=== PATIENT | female | born 1965 | race Caucasian/White ===

== ENCOUNTER 2016-07-05 14:52 | Inpatient (IN) | payer OTHER ==
[~2016-07-05] VITALS: Ht 170.2 cm; Wt 121.2 kg
[2016-07-05 16:02] LABS: Basophils # (auto) 0.1 uL; Basophils % (auto) 0.5 % (0.0-2.0); Eosinophils # (auto) 0.1 uL; Eosinophils % (auto) 0.8 % (0.0-7.0); Hematocrit 45.8 % (36.0-46.0); Hemoglobin 15.2 g/dL (12.2-16.2); Lymphocytes % (auto) 16.6 % (10.0-50.0); Mean Corpuscular Hemoglobin 29.3 pg (28.0-32.0); Mean Corpuscular Hgb Conc. 33.2 g/dL (32.0-36.0); Mean Corpuscular Volume 88.2 fL (80.0-100.0); Mean Platelet Volume 10.8 fL (7.4-10.4); Monocytes # (auto) 0.7 uL; Monocytes % (auto) 5.7 % (0.0-12.0); Neutrophils # (auto) 9.1 uL; Neutrophils % (auto) 76.4 % (37.0-80.0); Platelet Count (auto) 247 10^3/uL (140-450); Red Cell Distribution Width 13.9 % (11.6-16.0); White Blood Cell 11.9 10^3/uL (4.4-10.8)
[2016-07-05 16:03] LABS: Urine Bilirubin Negative (Negative); Urine Blood TRACE /uL (Negative); Urine Color Yellow (Yellow); Urine Glucose Normal (Normal); Urine Ketone Negative (Negative); Urine Nitrite Negative (Negative); Urine RBC 6 /hpf (0 - 4); Urine Squamous Epithelial Cell FEW /hpf (<5); Urine Urobilinogen Normal (Negative)
[2016-07-05 16:27] LABS: Albumin 3.7 g/dL (3.4-5.0); BUN/Creatinine Ratio 17.3; Potassium 4.1 mmol/L (3.5-5.1)
[2016-07-05 16:30] LABS: Bilirubin, Total 0.4 mg/dL (0.2-1.0); Total Protein 7.2 g/dL (6.4-8.2)
[2016-07-06] MEDS ORDERED: ONDANSETRON HCL 4 MG/2 ML VIAL IV PRN (05:30)
[2016-07-06] MEDS ORDERED: HYDROcodone-ACET 5/325MG TAB PO PRN (05:30)
[2016-07-06] MEDS: SODIUM CHLORIDE 0.9% 1,000 ML IV SCH ×2 (08:14→22:42)
[2016-07-06 08:47] VITALS: BP 104/75
[2016-07-06] MEDS ORDERED: cefTRIAXone 1GM/50ML D5W 50 ML IV SCH (09:00)
[2016-07-06 10:00] VITALS: BP 104/75
[2016-07-06] MEDS ORDERED: ENOXAPARIN SOD 30 MG/0.3 ML SYRINGE SC SCH (10:00)
[2016-07-06 12:00] VITALS: BP 127/71
[2016-07-06 12:21] LABS: Basophils # (auto) 0.1 uL; Basophils % (auto) 0.6 % (0.0-2.0); Eosinophils # (auto) 0.1 uL; Eosinophils % (auto) 0.9 % (0.0-7.0); Hematocrit 44.3 % (36.0-46.0); Hemoglobin 14.9 g/dL (12.2-16.2); Lymphocytes # (auto) 1.7 uL; Lymphocytes % (auto) 19.5 % (10.0-50.0); Mean Corpuscular Hemoglobin 29.3 pg (28.0-32.0); Mean Corpuscular Hgb Conc. 33.7 g/dL (32.0-36.0); Mean Corpuscular Volume 87.1 fL (80.0-100.0); Mean Platelet Volume 11.3 fL (7.4-10.4); Monocytes # (auto) 0.7 uL; Monocytes % (auto) 7.6 % (0.0-12.0); Neutrophils # (auto) 6.3 uL; Neutrophils % (auto) 71.4 % (37.0-80.0); Platelet Count (auto) 243 10^3/uL (140-450); Red Cell Distribution Width 13.6 % (11.6-16.0); White Blood Cell 8.8 10^3/uL (4.4-10.8)
[2016-07-06] MEDS: ENOXAPARIN SOD 40 MG/0.4 ML SYRINGE SC SCH (13:00)
[2016-07-06] MEDS: FAMOTIDINE 20 MG TAB PO SCH ×2 (13:00→21:23)
[2016-07-06] MEDS ORDERED: ACETAMINOPHEN 325 MG TAB PO ONE (13:45)
[2016-07-06] MEDS: ACETAMINOPHEN 325 MG TAB PO PRN (13:53)
[2016-07-06 17:00] VITALS: BP 114/58
[2016-07-06 22:00] VITALS: BP 101/55
[2016-07-07 05:00] VITALS: BP 87/52
[2016-07-07 06:22] LABS: Basophils # (auto) 0 uL; Basophils % (auto) 0.3 % (0.0-2.0); Eosinophils # (auto) 0.1 uL; Hematocrit 43.4 % (36.0-46.0); Hemoglobin 14.4 g/dL (12.2-16.2); Lymphocytes # (auto) 1.8 uL; Lymphocytes % (auto) 18.9 % (10.0-50.0); Mean Corpuscular Hemoglobin 29.3 pg (28.0-32.0); Mean Corpuscular Hgb Conc. 33.3 g/dL (32.0-36.0); Mean Platelet Volume 11.9 fL (7.4-10.4); Monocytes # (auto) 0.7 uL; Monocytes % (auto) 7.5 % (0.0-12.0); Neutrophils % (auto) 72.3 % (37.0-80.0); Platelet Count (auto) 249 10^3/uL (140-450); Red Cell Distribution Width 13.9 % (11.6-16.0); White Blood Cell 9.7 10^3/uL (4.4-10.8)
[2016-07-07 06:47] LABS: Albumin 3.3 g/dL (3.4-5.0); BUN/Creatinine Ratio 12.3; Bilirubin, Total 0.7 mg/dL (0.2-1.0); Calcium 8.4 mg/dL (8.5-10.1); Potassium 3.9 mmol/L (3.5-5.1); Total Protein 6.4 g/dL (6.4-8.2)
[2016-07-07 08:11] LABS: Rheumatoid Arthritis Factor <10.0 IU/mL (0.0-13.9)
[2016-07-07 08:30] VITALS: BP 137/78
[2016-07-07] MEDS: FAMOTIDINE 20 MG TAB PO SCH ×2 (08:55→21:50)
[2016-07-07] MEDS: ENOXAPARIN SOD 40 MG/0.4 ML SYRINGE SC SCH (08:55)
[2016-07-07 12:38] VITALS: BP 117/61
[2016-07-07] MEDS: ACETAMINOPHEN 325 MG TAB PO PRN (13:31)
[2016-07-07] MEDS ORDERED: LORazepam 0.5 MG TAB PO PRN (15:30)
[2016-07-07] MEDS: NICOTINE 21MG/24 HR TOPICAL PATCH TD SCH (16:00)
[2016-07-07 16:51] VITALS: BP 113/71
[2016-07-07] MEDS: SODIUM CHLORIDE 0.9% 1,000 ML IV SCH (18:08)
[2016-07-07 22:00] VITALS: BP 116/55
[2016-07-08 05:30] VITALS: BP 106/59
[2016-07-08] MEDS: SODIUM CHLORIDE 0.9% 1,000 ML IV SCH (07:26)
[2016-07-08] MEDS: FAMOTIDINE 20 MG TAB PO SCH ×2 (10:00→22:58)
[2016-07-08] MEDS: ENOXAPARIN SOD 40 MG/0.4 ML SYRINGE SC SCH (10:00)
[2016-07-08] MEDS: NICOTINE 21MG/24 HR TOPICAL PATCH TD SCH (10:00)
[2016-07-08] MEDS ORDERED: MORPHINE SULF INJ 2 MG/ML SYRINGE 1ML ONE (11:07)
[2016-07-08 15:39] LABS: INR 0.95 (0.9-1.15); Prothrombin Time 10.3 sec (9.37-12.3)
[2016-07-08 15:40] LABS: Partial Thromboplastin Time 26.1 sec (22.64-33.71)
[2016-07-08 20:00] VITALS: BP 118/63
[2016-07-08] MEDS: ACETAMINOPHEN 325 MG TAB PO PRN (20:40)
[2016-07-08 22:00] VITALS: BP 118/63
[2016-07-09] MEDS: SODIUM CHLORIDE 0.9% 1,000 ML IV SCH ×3 (00:06→17:54)
[2016-07-09 05:11] VITALS: BP 131/78
[2016-07-09 09:00] VITALS: BP 145/75
[2016-07-09] MEDS: ENOXAPARIN SOD 40 MG/0.4 ML SYRINGE SC SCH (09:58)
[2016-07-09] MEDS: NICOTINE 21MG/24 HR TOPICAL PATCH TD SCH (10:00)
[2016-07-09] MEDS: FAMOTIDINE 20 MG TAB PO SCH ×2 (10:00→21:49)
[2016-07-09] MEDS ORDERED: PANT40TA2 PO (10:25)
[2016-07-09] MEDS ORDERED: ceFAZolin 1GM/50ML D5W 0 ML IV ONE (11:59)
[2016-07-09] MEDS ORDERED: MEPERIDINE HCL (50 MG/ML) 1 ML VIAL ONE (12:47)
[2016-07-09] MEDS ORDERED: MIDAZOLAM HCL 1MG/1ML-2 ML VIAL ONE (12:47)
[2016-07-09] MEDS ORDERED: PROPOFOL 10 MG/ML 20 ML IV ONE (12:47)
[2016-07-09] MEDS ORDERED: SODIUM CHLORIDE LOCK 20 ML ONE (12:47)
[2016-07-09] MEDS ORDERED: ROCURONIUM 10MG/ML 10ML VIAL IV ONE (12:47)
[2016-07-09] MEDS ORDERED: fentaNYL CITRATE 100 MCG/2 ML VL ONE (12:47)
[2016-07-09 13:00] VITALS: BP 114/69
[2016-07-09] MEDS: BUPIVACAINE 0.25% INJ 50ML VIAL ONE ×2 (14:15→14:49)
[2016-07-09] MEDS ORDERED: ceFAZolin 1GM/50ML D5W 50 ML IV ONE (14:16)
[2016-07-09] MEDS ORDERED: HYDROmorphone HCL 2 MG/ML VL ONE (16:09)
[2016-07-09] MEDS ORDERED: ONDANSETRON HCL 4 MG/2 ML VIAL IV ONE (16:15)
[2016-07-09] MEDS: HYDROmorphone HCL 2 MG/ML VL IV PRN ×5 (16:16→19:59)
[2016-07-09] MEDS: PIPERACILLIN-TAZOB 3.375GM 100 ML IV SCH ×2 (17:54→23:38)
[2016-07-09] MEDS: metroNIDAZOLE 500MG/100ML 100 ML IV SCH (21:50)
[2016-07-09 22:00] VITALS: BP 109/69
[2016-07-10] MEDS: HYDROmorphone HCL 2 MG/ML VL IV PRN ×4 (00:30→21:32)
[2016-07-10] MEDS: SODIUM CHLORIDE 0.9% 1,000 ML IV SCH ×4 (02:20→18:50)
[2016-07-10 05:00] VITALS: BP 104/52
[2016-07-10] MEDS: metroNIDAZOLE 500MG/100ML 100 ML IV SCH ×3 (05:18→21:32)
[2016-07-10 06:07] LABS: Basophils # (auto) 0 uL; Eosinophils # (auto) 0 uL; Hematocrit 41.7 % (36.0-46.0); Hemoglobin 13.9 g/dL (12.2-16.2); Lymphocytes # (auto) 0.7 uL; Lymphocytes % (auto) 6.5 % (10.0-50.0); Mean Corpuscular Hemoglobin 29.3 pg (28.0-32.0); Mean Corpuscular Hgb Conc. 33.2 g/dL (32.0-36.0); Mean Corpuscular Volume 88.2 fL (80.0-100.0); Mean Platelet Volume 12.2 fL (7.4-10.4); Monocytes # (auto) 0.5 uL; Monocytes % (auto) 4.2 % (0.0-12.0); Neutrophils # (auto) 9.5 uL; Neutrophils % (auto) 89.3 % (37.0-80.0); Platelet Count (auto) 220 10^3/uL (140-450); Red Cell Distribution Width 13.4 % (11.6-16.0); SUSPECT VIEW TRANSMISSION; White Blood Cell 10.6 10^3/uL (4.4-10.8)
[2016-07-10 06:41] LABS: Albumin 2.9 g/dL (3.4-5.0); BUN/Creatinine Ratio 10.8; Calcium 8.2 mg/dL (8.5-10.1)
[2016-07-10 06:43] LABS: Bilirubin, Total 0.4 mg/dL (0.2-1.0); Total Protein 6.3 g/dL (6.4-8.2)
[2016-07-10] MEDS: PIPERACILLIN-TAZOB 3.375GM 100 ML IV SCH ×4 (06:51→23:42)
[2016-07-10] MEDS: NICOTINE 21MG/24 HR TOPICAL PATCH TD SCH (08:01)
[2016-07-10 09:00] VITALS: BP 126/62
[2016-07-10 09:07] VITALS: BP 126/62
[2016-07-10] MEDS: FAMOTIDINE 20 MG TAB PO SCH ×2 (09:29→21:31)
[2016-07-10] MEDS: ENOXAPARIN SOD 40 MG/0.4 ML SYRINGE SC SCH (09:29)
[2016-07-10 13:00] VITALS: BP 127/62
[2016-07-10 17:00] VITALS: BP 105/63
[2016-07-10 22:20] VITALS: BP 123/69
[2016-07-11] MEDS: SODIUM CHLORIDE 0.9% 1,000 ML IV SCH (02:50)
[2016-07-11 05:37] VITALS: BP 111/74
[2016-07-11] MEDS: metroNIDAZOLE 500MG/100ML 100 ML IV SCH ×2 (05:38→14:00)
[2016-07-11] MEDS: PIPERACILLIN-TAZOB 3.375GM 100 ML IV SCH ×2 (06:19→12:00)
[2016-07-11 09:00] VITALS: BP 112/64
[2016-07-11] MEDS: FAMOTIDINE 20 MG TAB PO SCH (09:53)
[2016-07-11] MEDS: NICOTINE 21MG/24 HR TOPICAL PATCH TD SCH (09:53)
[2016-07-11] MEDS: ENOXAPARIN SOD 40 MG/0.4 ML SYRINGE SC SCH (09:53)
[2016-07-11] MEDS: HYDROcodone-ACET 5/325MG TAB PO PRN ×2 (10:00→15:03)
[2016-07-11] MEDS ORDERED: IBUP600T27 PO (12:58)
[2016-07-11] MEDS ORDERED: LEVO500T3 PO (12:58)
[2016-07-11] MEDS ORDERED: METR500T PO (12:58)
[2016-07-11 13:00] VITALS: BP 120/62
== END 2016-07-11 16:30 | disposition home or self-care (01) | DRG 710 ==
LOC: ER 14:52 → OVERFLOW 14:53 → WEST WING 07-06 08:46
PROVIDERS: ADMIT Nurse Practitioner; ATTEND Internal Medicine
PROC: 0F904ZZ Drainage of Liver, Percutaneous Endoscopic Approach (ICD-10-PCS; 2016-07-09)
PROC: 3E1 Administration, Physiological Systems and Anatomical Regions, Irrigation (ICD-10-PCS; 2016-07-09)
PROC: 0DNF4ZZ Release Right Large Intestine, Percutaneous Endoscopic Approach (ICD-10-PCS; 2016-07-09)
PROC: 0FT44ZZ Resection of Gallbladder, Percutaneous Endoscopic Approach (ICD-10-PCS; principal; 2016-07-09 14:27)
DX: A41.9 Sepsis, unspecified organism (principal); E43 Unspecified severe protein-calorie malnutrition; K65.1 Peritoneal abscess; K80.00 Calculus of gallbladder with acute cholecystitis without obstruction; E66.01 Morbid (severe) obesity due to excess calories; M10.9 Gout, unspecified; E11.9 Type 2 diabetes mellitus without complications; E86.0 Dehydration; I10 Essential (primary) hypertension; K59.00 Constipation, unspecified; K66.0 Peritoneal adhesions (postprocedural) (postinfection); Z88.1 Allergy status to other antibiotic agents; Z90.710 Acquired absence of both cervix and uterus; Z68.41 Body mass index [BMI] 40.0-44.9, adult; Z90.89 Acquired absence of other organs; Z72.0 Tobacco use
CPT/HCPCS: 36415; 73130; 74176; 78226; 80053; 81001; 81025; 82150; 83690; 84550; 85025; 85610; 85652; 85730; 86038; 86141; 86200; 86431; 86850; 86900; 86901; 87070; 87075; 87205; J0690; J0696; J2250; J2543; J2704; J3490

== ENCOUNTER 2023-06-01 13:03 | Emergency (ER) | payer MEDICAID, OTHER ==
[~2023-06-01] VITALS: Ht 167.6 cm; Wt 120.0 kg
[~2023-06-01 13:03] MED LIST: IBUP-1454 PO; LEVO500T31 PO; METR500T PO; PANT40TA2 PO
[2023-06-01 14:29] VITALS: BP 99/52; PULSE 80; RESP 17; O2SAT 100
== END 2023-06-01 15:02 | disposition left against medical advice (07) ==
LOC: ER 13:03
DX: T74.21XA Adult sexual abuse, confirmed, initial encounter (principal); F41.9 Anxiety disorder, unspecified; M10.9 Gout, unspecified; Z98.890 Other specified postprocedural states; Z88.8 Allergy status to other drugs, medicaments and biological substances; Z79.899 Other long term (current) drug therapy